=== PATIENT | female | born 1990 | race Caucasian/White ===

== ENCOUNTER 2019-11-15 21:17 | Emergency (ER) | payer BC, OTHER ==
[~2019-11-15] VITALS: Ht 160 cm; Wt 138.7 kg
--- NOTE | 2019-11-15 21:32 | ED GU-Female ---
General Stated Complaint: SPOTTING, History of Present Illness Date Seen by Provider: Nov 15, 2019 Time Seen by Provider: 21:29 Initial Comments This patient is a 29-year-old female that is a at 11 weeks . Followed by local clinic in the area for VP RESEARCH. Patient states that she had asked him farmyard while raking leaves 5 days ago with abdominal complaints of pain or injury from the fall. Patient states about 30 minutes prior to arrival started having severe abdominal cramping and did pass some tissue material and has been vaginally bleeding with cramping since. Patient requests medical evaluation. The patient understands that we do not have ultrasound available. Timing/Duration: just prior to arrival Severity/Quality: mild, cramping Radiation: none Activities at Onset: none Prior Genitourinary Problems: none Modifying Factors: Worsens With Analgesics, Worsens With Antacids, Worsens With Breathing, Worsens With Coughing, Worsens With Defecating, Worsens With Eating, Worsens With Exercise, Worsens With Lying down, Worsens With Movement, Worsens With Palpation, Worsens With Resting, Worsens With Urinating, Worsens With Vomiting, Worsens With Other Allergies and Home Medications Allergies Coded Allergies: No Known Drug Allergies (Unverified , 11/15/19) Patient Home Medication List Home Medication List Reviewed: Yes Review of Systems Review of Systems Constitutional: No no symptoms reported; see HPI; No chills, No diaphoresis, No dizziness, No fever, No malaise, No weakness, No weight gain, No weight loss, No other EENTM: No see HPI, No no symptoms reported, No ear discharge, No hearing loss, No ear pain, No blurred vision, No double vision, No eye pain, No tearing, No vision loss, No dental problems, No hoarseness, No mouth pain, No mouth swelling, No epistaxis, No nose congestion, No nose pain, No throat pain, No throat swelling, No other Respiratory: No no symptoms reported, No see HPI, No cough, No dyspnea on exertion, No hemoptysis, No orthopnea, No phlegm, No short of breath, No stridor, No wheezing, No other Cardiovascular: No no symptoms reported, No see HPI, No chest pain, No edema, No Hx of Intervention, No palpitations, No syncope, No vascular heart diseas, No other Gastrointestinal: No RUQ, No LUQ, No RLQ, No LLQ, No no symptoms reported, No see HPI, No abdominal pain, No constipation, No diarrhea, No dysphagia, No hematemesis, No heartburn, No jaundice, No loss of appetite, No melena, No nausea, No vomiting, No other Genitourinary: see HPI : Yes LMP: Aug 30, 2019 Past Vdjmdet-Caztmr-Poccjn Hx Patient Social History Recent Foreign Travel: No Contact w/Someone Who Travel: No Physical Exam Vital Signs Vital Signs - First Documented 11/15/19 21:21 Temp 37.1 Pulse 100 Resp 18 B/P (MAP) 161/94 (116) Pulse Ox 100 O2 Delivery Room Air Capillary Refill : Height, Weight, BMI Height: '" Weight: lbs. oz. kg; BMI Method: General Appearance: WD/WN, no apparent distress HEENT: PERRL/EOMI, normal ENT inspection, TMs normal, pharynx normal Neck: non-tender, full range of motion, supple, normal inspection Cardiovascular: normal peripheral pulses, regular rate, rhythm, no edema, no gallop, no JVD, no murmur Respiratory: chest non-tender, lungs clear, normal breath sounds, no respiratory distress, no accessory muscle use, respiratory distress Gastrointestinal: normal bowel sounds, non tender, soft, no organomegaly, no pulsatile mass, abnormal bowel sounds Genital/Rectal: other (deferred) Pelvic: vaginal bleeding (deferred), other Progress/Results/Core Measures Suspected Sepsis SIRS Temperature: Pulse: Respiratory Rate: Laboratory Tests 11/15/19 21:52: White Blood Count 12.0H Blood Pressure / Mean: Laboratory Tests 11/15/19 21:52: Creatinine 0.68, Platelet Count 305 Results/Orders Lab Results Laboratory Tests Test 11/15/19 21:52 Range/Units White Blood Count 12.0 H 4.3-11.0 10^3/uL Red Blood Count 5.18 4.35-5.85 10^6/uL Hemoglobin 13.3 11.5-16.0 G/DL Hematocrit 41 35-52 % Mean Corpuscular Volume 80 80-99 FL Mean Corpuscular Hemoglobin 26 25-34 PG Mean Corpuscular Hemoglobin Concent 32 32-36 G/DL Red Cell Distribution Width 14.3 10.0-14.5 % Platelet Count 305 130-400 10^3/uL Mean Platelet Volume 8.6 7.4-10.4 FL Neutrophils (%) (Auto) 71 42-75 % Lymphocytes (%) (Auto) 25 12-44 % Monocytes (%) (Auto) 4 0-12 % Eosinophils (%) (Auto) 0 0-10 % Basophils (%) (Auto) 0 0-10 % Neutrophils # (Auto) 8.5 H 1.8-7.8 X 10^3 Lymphocytes # (Auto) 3.0 1.0-4.0 X 10^3 Monocytes # (Auto) 0.4 0.0-1.0 X 10^3 Eosinophils # (Auto) 0.0 0.0-0.3 10^3/uL Basophils # (Auto) 0.0 0.0-0.1 10^3/uL Urine Color YELLOW Urine Clarity CLEAR Urine pH 6.0 5-9 Urine Specific Dexter 1.010 L 1.016-1.022 Urine Protein NEGATIVE NEGATIVE Urine Glucose (UA) NEGATIVE NEGATIVE Urine Ketones NEGATIVE NEGATIVE Urine Nitrite NEGATIVE NEGATIVE Urine Bilirubin NEGATIVE NEGATIVE Urine Urobilinogen 0.2 < = 1.0 MG/DL Urine Leukocyte Esterase NEGATIVE NEGATIVE Urine RBC (Auto) 3+ H NEGATIVE Urine RBC 5-10 H /HPF Urine WBC 0-2 /HPF Urine Squamous Epithelial Cells 0-2 /HPF Urine Crystals NONE /LPF Urine Bacteria TRACE /HPF Urine Casts NONE /LPF Urine Mucus NEGATIVE /LPF Urine Culture Indicated NO Sodium Level 140 135-145 MMOL/L Potassium Level 3.8 3.6-5.0 MMOL/L Chloride Level 102 98-107 MMOL/L Carbon Dioxide Level 22 21-32 MMOL/L Anion Gap 16 H 5-14 MMOL/L Blood Urea Nitrogen 10 7-18 MG/DL Creatinine 0.68 0.60-1.30 MG/DL Estimat Glomerular Filtration Rate > 60 BUN/Creatinine Ratio 15 Glucose Level 118 H 70-105 MG/DL Calcium Level 9.9 8.5-10.1 MG/DL Human Chorionic Gonadotropin, Quant 6802 H <5 MIU/ML My Orders Orders - NEERU LOPEZ MD Basic Metabolic Panel (11/15/19 21:27) Cbc With Automated Diff (11/15/19 21:27) Urinalysis (11/15/19 21:29) Abo Rh Type (11/15/19 21:27) Hcg,Quantitative (11/15/19 21:27) Vital Signs/I&O 11/15/19 21:21 Temp 37.1 Pulse 100 Resp 18 B/P (MAP) 161/94 (116) Pulse Ox 100 O2 Delivery Room Air Capillary Refill : Progress Note : Progress Note According to medical records from patient's previous vaginal delivery. Patient's blood type is A+. Patient will not need RhoGAM. Unable to perform an updated RBO Rh test at this facility due to not being available. According to the lab. Patient states that she does have an scheduled visit with her PCP on Thursday which is in approximately 6 days. I did advise the patient to follow up with her VP RESEARCH earlier. Patient will need to have a repeat beta hCG were also scheduling ordering the ultrasound for tomorrow. Patient will have this outpatient ultrasound. Patient states understanding that if increase in bleeding or cr amping or any discomfort she should return to the emergency Department were presented herself to [facility] which both have VP RESEARCH capabilities. Otherwise follow-up with her PCP. Patient states understanding of the risk of and this is possibly a threatened . Patient be discharged home per her request. Pelvic rest. Delayed left lateral recumbent with knees flexed. Encourage by mouth fluids and plenty rest. Follow-up with your PCP as instructed. Follow up as scheduled for an outpatient ultrasound and follow-up with her primary care physician VP RESEARCH as instructed. Departure Impression Primary Impression: Threatened affecting intrauterine Disposition: HOME, SELF-CARE Condition: Stable Departure-Patient Inst. Decision time for Depature: 22:37 Referrals: SIGIFREDO GALINDO MD (PCP/Family) Primary Care Physician Patient Instructions: Threatened Miscarriage (DC) Add. Discharge Instructions: Pelvic rest. Delayed left lateral recumbent with knees flexed. Encourage by mouth fluids and plenty rest. Follow-up with your PCP as instructed. Follow up as scheduled for an outpatient ultrasound and follow-up with her primary care physician VP RESEARCH as instructed. NEERU LOPEZ MD Nov 15, 2019 21:32
[2019-11-15 22:05] LABS: BACTERIA,URINE TRACE /HPF; BILIRUBIN,URINE NEGATIVE (NEGATIVE); CLARITY,URINE CLEAR; COLOR,URINE YELLOW; GLUCOSE, URINE (UA) NEGATIVE (NEGATIVE); KETONES,URINE NEGATIVE (NEGATIVE); LEUKOCYTE ESTERASE ,URINE NEGATIVE (NEGATIVE); NITRITE,URINE NEGATIVE (NEGATIVE); PROTEIN,URINE NEGATIVE (NEGATIVE); SQUAMOUS EPITHELIAL CELL,UR 0-2 /HPF; WBC,URINE 0-2 /HPF
[2019-11-15 22:06] LABS: BASOPHILS % (AUTO) 0 % (0-10); EOSINOPHILS % (AUTO) 0 % (0-10); HEMATOCRIT 41 % (35-52); HEMOGLOBIN 13.3 G/DL (11.5-16.0); LYMPHOCYTES % (AUTO) 25 % (12-44); MEAN CORPUSCULAR HEMOGLOBIN 26 PG (25-34); MEAN CORPUSCULAR HGB CONC 32 G/DL (32-36); MEAN CORPUSCULAR VOLUME 80 FL (80-99); MEAN PLATELET VOLUME 8.6 FL (7.4-10.4); MONOCYTES # (AUTO) 0.4 X 10^3 (0.0-1.0); MONOCYTES % (AUTO) 4 % (0-12); NEUTROPHILS # (AUTO) 8.5 X 10^3 (1.8-7.8); NEUTROPHILS % (AUTO) 71 % (42-75); PLATELET COUNT 305 10^3/uL (130-400); RED CELL DISTRIBUTION WIDTH 14.3 % (10.0-14.5)
[2019-11-15 22:21] LABS: BUN/CREATININE RATIO 15; CALCIUM 9.9 MG/DL (8.5-10.1); CARBON DIOXIDE 22 MMOL/L (21-32); CHLORIDE 102 MMOL/L (98-107); CREATININE SERUM 0.68 MG/DL (0.60-1.30); GFR ESTIMATED > 60; GLUCOSE 118 MG/DL (70-105); POTASSIUM 3.8 MMOL/L (3.6-5.0); SODIUM 140 MMOL/L (135-145)
[2019-11-15 22:40] VITALS: BP 161/92
== END 2019-11-15 22:40 | disposition home or self-care (01) ==
LOC: ER FS 21:19
DX: O20.0 Threatened abortion (principal); Z3A.11 11 weeks gestation of pregnancy
CPT/HCPCS: 36415; 80048; 81000; 84702; 85025; 86900; 86901

== ENCOUNTER 2020-05-18 17:41 | Inpatient (IN) | payer BC ==
[~2020-05-18] VITALS: Ht 160 cm; Wt 140.0 kg
[2020-05-18] MEDS ORDERED: NS IV 1000 ML 1,000 ML IV SCH ×2 (18:15→22:31)
--- NOTE | 2020-05-18 18:16 | ED Cough/URI ---
General Chief Complaint: Cough/Cold/Flu Symptoms Stated Complaint: SOB,COUGH,FEVER Nursing Triage Note: PT C/O COUGH AND FEVER SINCE LAST THURSDAY. STATES SHE IS LATE ON HER PERIOD WITH A HISTORY OF BRONCHITIS, HAS NOT BEEN TESTED FOR COVID -19 Sepsis Screen: Possible Severe Sepsis Risk Source: patient Exam Limitations: no limitations History of Present Illness Date Seen by Provider: May 18, 2020 Time Seen by Provider: 17:45 Initial Comments The patient is a pleasant obese 29-year-old female presents for evaluation of cough and fever since last Thursday, one week ago. She also reports some slight shortness of breath and some chills. She states that her and one of her children had milder symptoms in her now feeling better. She has not yet been tested for COVID-19. She states that she has lost her sense of taste and smell and had some mild diarrhea a few days ago. She is alert and oriented 4, anxious, but appears to be in no distress this time. She is noted to be tachycardic. Her oxygen saturation is between 93 and 95% on room air. Timing/Duration: week (1) Severity/Quality: moderate, dry cough Modifying Factors: Improves With Activity (makes it worse), Improves With Oxygen (helps) Associated Symptoms: cough, fever/chills, muscle aches, shortness of breath Allergies and Home Medications Allergies Coded Allergies: No Known Drug Allergies (Unverified , 11/15/19) Patient Home Medication List Home Medication List Reviewed: Yes Review of Systems Review of Systems Constitutional: chills, fever EENTM: no symptoms reported Respiratory: cough, short of breath Cardiovascular: no symptoms reported Gastrointestinal: no symptoms reported Genitourinary: no symptoms reported Musculoskeletal: no symptoms reported Skin: no symptoms reported Psychiatric/Neurological: No Symptoms Reported Hematologic/Lymphatic: No Symptoms Reported Immunological/Allergic: no symptoms reported All Other Systems Reviewed Negative Unless Noted: Yes Past Lgihfzl-Jhkshd-Zrouwi Hx Past Med/Social Hx: Reviewed Nursing Past Med/Soc Hx Patient Social History Recent Foreign Travel: No Contact w/Someone Who Travel: No Recent Infectious Disease Expo: No Seasonal Allergies Seasonal Allergies: No Past Medical History Surgeries: Yes Section Respiratory: No Cardiac: Yes (Pre-Eclampsia) Neurological: No Last Menstrual Period: Apr 11, 2020 Genitourinary: No Gastrointestinal: No Musculoskeletal: No Endocrine: No HEENT: No Cancer: No Psychosocial: No Integumentary: No Physical Exam Vital Signs - First Documented 05/18/20 17:50 Temp 36.5 Pulse 128 Resp 24 B/P (MAP) 124/102 (109) Pulse Ox 92 O2 Delivery Room Air Capillary Refill : Less Than 3 Seconds Height: '" Weight: lbs. oz. kg; 54.00 BMI Method: General Appearance: WD/WN, no apparent distress, obese Eyes: Bilateral Eye Normal Inspection, Bilateral Eye PERRL, Bilateral Eye EOMI HEENT: PERRL/EOMI, TMs normal, pharynx normal Neck: non-tender, full range of motion, supple, normal inspection Respiratory: normal breath sounds, no respiratory distress, no accessory muscle use, rhonchi, other (frequent coughing) Cardiovascular: no edema, no JVD, no murmur, tachycardia Gastrointestinal: normal bowel sounds, non tender, soft Extremities: non-tender, normal inspection, no pedal edema Neurologic/Psychiatric: human relations manager II-XII nml as tested, no motor/sensory deficits, alert, normal mood/affect, oriented x 3 Skin: normal color, warm/dry Focused Exam Lactate Level 05/18/20 18:15: Lactic Acid Level 2.03*H Lactic Acid Level Laboratory Tests Test 05/18/20 18:15 Lactic Acid Level 2.03 MMOL/L (0.50-2.00) *H Progress/Results/Core Measures Suspected Sepsis Recent Fever Within 48 Hours: Yes Infection Criteria Present: Suspected New Infection New/Unexplained Altered Menta: No Sepsis Screen: Possible Severe Sepsis Risk SIRS Temperature: Pulse: 128 Respiratory Rate: 24 Laboratory Tests 05/18/20 18:15: White Blood Count 5.1 Blood Pressure 124 /102 Mean: 109 05/18/20 18:15: Lactic Acid Level 2.03*H Laboratory Tests 05/18/20 18:15: Creatinine 0.75, Platelet Count 177, Total Bilirubin < 0.2 Results/Orders Lab Results Laboratory Tests Test 05/18/20 18:06 05/18/20 18:15 Range/Units White Blood Count 5.1 4.3-11.0 10^3/uL Red Blood Count 4.37 4.35-5.85 10^6/uL Hemoglobin 11.2 L 11.5-16.0 G/DL Hematocrit 35 35-52 % Mean Corpuscular Volume 79 L 80-99 FL Mean Corpuscular Hemoglobin 26 25-34 PG Mean Corpuscular Hemoglobin Concent 33 32-36 G/DL Red Cell Distribution Width 14.5 10.0-14.5 % Platelet Count 177 130-400 10^3/uL Mean Platelet Volume 9.1 7.4-10.4 FL Immature Granulocyte % (Auto) 0 % Neutrophils (%) (Auto) 65 42-75 % Lymphocytes (%) (Auto) 29 12-44 % Monocytes (%) (Auto) 5 0-12 % Eosinophils (%) (Auto) 0 0-10 % Basophils (%) (Auto) 0 0-10 % Neutrophils # (Auto) 3.3 1.8-7.8 X 10^3 Lymphocytes # (Auto) 1.5 1.0-4.0 X 10^3 Monocytes # (Auto) 0.3 0.0-1.0 X 10^3 Eosinophils # (Auto) 0.0 0.0-0.3 10^3/uL Basophils # (Auto) 0.0 0.0-0.1 10^3/uL Immature Granulocyte # (Auto) 0.0 0.0-0.1 10^3/uL Sodium Level 138 135-145 MMOL/L Potassium Level 3.7 3.6-5.0 MMOL/L Chloride Level 100 98-107 MMOL/L Carbon Dioxide Level 23 21-32 MMOL/L Anion Gap 15 H 5-14 MMOL/L Blood Urea Nitrogen 7 7-18 MG/DL Creatinine 0.75 0.60-1.30 MG/DL Estimat Glomerular Filtration Rate > 60 BUN/Creatinine Ratio 9 Glucose Level 97 70-105 MG/DL Lactic Acid Level 2.03 *H 0.50-2.00 MMOL/L Calcium Level 8.8 8.5-10.1 MG/DL Corrected Calcium 8.8 8.5-10.1 MG/DL Total Bilirubin < 0.2 0.1-1.0 MG/DL Aspartate Amino Transf (AST/SGOT) 32 5-34 U/L Alanine Aminotransferase (ALT/SGPT) 31 0-55 U/L Alkaline Phosphatase 72 40-136 U/L Total Protein 7.2 6.4-8.2 GM/DL Albumin 4.0 3.2-4.5 GM/DL Micro Results Microbiology 05/18/20 Influenza Types A,B Antigen (AFSHAN) - Final, Complete My Orders Orders - LINDA BOONE DO Influenza A And B Antigens (05/18/20 18:00) Coronavirus Sars-Cov-2 So 2018 (05/18/20 18:00) Urine Bedside (05/18/20 18:00) Chest 1 View Ap/Pa Only (05/18/20 18:00) Cbc With Automated Diff (05/18/20 18:11) Comprehensive Metabolic Panel (05/18/20 18:11) Ua Culture If Indicated (05/18/20 18:11) Ns Iv 1000 Ml (Sodium Chloride 0.9%) (05/18/20 18:15) Lactic Acid Analyzer (05/18/20 18:11) Blood Culture (05/18/20 18:11) Section Maintainer (05/18/20 18:11) Procalcitonin (Pct) (05/18/20 18:15) Blood Culture (05/18/20 18:26) Hcg,Qualitative Serum (05/18/20 19:14) Dexamethasone Injection (Decadron Injec (05/18/20 19:45) Arterial Blood Gas (05/18/20 19:37) Vital Signs/I&O 05/18/20 05/18/20 05/18/20 05/18/20 17:50 18:00 18:00 18:56 Temp 36.5 36.5 37.4 Pulse 128 128 114 Resp 24 24 21 B/P (MAP) 124/102 (109) 124/102 139/87 (104) Pulse Ox 92 92 91 O2 Delivery Room Air Room Air Room Air Room Air Capillary Refill : Less Than 3 Seconds Blood Pressure Mean: 109 Progress Note : Progress Note @1930 - patient updated on lab and imaging results. Given her oxygen demand and her loss of taste and smell I'm strongly suspicious that she has a coronavirus. She'll need to be admitted for oxygen and close monitoring. She is agreeable to admission at [facility]. Dr. Dr. Veronica accepts the admission to the cardiac stepdown at this time. Departure Communication (Admissions) Time/Spoke to Admitting Phy: 19:41 Dr. Howell accepts the admission to cardiac stepdown at [facility] Impression Primary Impression: Upper respiratory infection Additional Impressions: Suspected COVID-19 virus infection Hypoxia Disposition: 09 ADMITTED INPATIENT Condition: Stable Admissions Decision to Admit Reason: Admit from ER (General) Decision to Admit/Date: May 18, 2020 Time/Decision to Admit Time: 19:30 Departure-Patient Inst. Referrals: SIGIFREDO GALINDO MD (PCP/Family) Primary Care Physician LINDA BOONE DO May 18, 2020 18:16
[2020-05-18 18:41] LABS: BASOPHILS % (AUTO) 0 % (0-10); EOSINOPHILS % (AUTO) 0 % (0-10); HEMATOCRIT 35 % (35-52); HEMOGLOBIN 11.2 G/DL (11.5-16.0); LYMPHOCYTES % (AUTO) 29 % (12-44); MEAN CORPUSCULAR HEMOGLOBIN 26 PG (25-34); MEAN CORPUSCULAR HGB CONC 33 G/DL (32-36); MEAN CORPUSCULAR VOLUME 79 FL (80-99); MEAN PLATELET VOLUME 9.1 FL (7.4-10.4); MONOCYTES % (AUTO) 5 % (0-12); NEUTROPHILS % (AUTO) 65 % (42-75); PLATELET COUNT 177 10^3/uL (130-400); WHITE BLOOD COUNT 5.1 10^3/uL (4.3-11.0)
[2020-05-18 18:42] LABS: LYMPHOCYTES # (AUTO) 1.5 X 10^3 (1.0-4.0); MONOCYTES # (AUTO) 0.3 X 10^3 (0.0-1.0); NEUTROPHILS # (AUTO) 3.3 X 10^3 (1.8-7.8)
[2020-05-18 18:56] VITALS: BP 139/87
[2020-05-18 18:58] LABS: ALANINE AMINOTRANSFERASE 31 U/L (0-55); ALKALINE PHOSPHATASE 72 U/L (40-136); BILIRUBIN,TOTAL < 0.2 MG/DL (0.1-1.0); BUN/CREATININE RATIO 9; CALCIUM 8.8 MG/DL (8.5-10.1); CARBON DIOXIDE 23 MMOL/L (21-32); CHLORIDE 100 MMOL/L (98-107); CREATININE SERUM 0.75 MG/DL (0.60-1.30); GFR ESTIMATED > 60; GLUCOSE 97 MG/DL (70-105); POTASSIUM 3.7 MMOL/L (3.6-5.0); SODIUM 138 MMOL/L (135-145); TOTAL PROTEIN 7.2 GM/DL (6.4-8.2)
--- NOTE | 2020-05-18 20:45 | Diagnostic Imaging Report ---
INDICATION: Cough and fever x 1 week. TECHNIQUE: Single view chest, 8:10 p.m. CORRELATION STUDY: None. FINDINGS: There is extensive attenuation on this examination. There is also limited depth of inspiration. This likely results in some crowding at the lung bases and may be atelectasis from hypoventilation with the possibility of infiltrate, particularly in the right perihilar and infrahilar region, not excluded. Heart size is enlarged. Vasculature overall within normal limits. IMPRESSION: Limited, suboptimal examination. Given hypoventilation, there may be atelectasis versus infiltrate at the lung bases, particularly on the right. Otherwise, generally negative appearance about the chest. Dictated by: Dictated on workstation # [id number]
[2020-05-18] MEDS ORDERED: ONDANSETRON 4 MG/2 ML (SDV) Z0FRAN IVP ONE (21:15)
[2020-05-18] MEDS ORDERED: ACETAMINOPHEN 500 MG TAB (TYLENOL) PO ONE (21:15)
[2020-05-18 22:15] VITALS: BP 134/83
[2020-05-18 22:27] VITALS: BP 134/83
[2020-05-18] MEDS: ONDANSETRON 4 MG/2 ML (SDV) Z0FRAN IVP PRN (22:40)
[2020-05-18] MEDS ORDERED: ALPRAZolam 0.25 MG (XANAX) TAB PO PRN (22:45)
[2020-05-18] MEDS ORDERED: LOPERAMIDE 2 MG (IMODIUM) TABLET PO PRN (22:45)
[2020-05-18] MEDS ORDERED: diphenhydrAMINE 25 MG TAB (BENADRYL) PO PRN (22:45)
[2020-05-18] MEDS ORDERED: CALCIUM CARBONATE 500 MG (TUMS) TAB.CHEW PO PRN (22:45)
[2020-05-18] MEDS ORDERED: DOCUSATE SODIUM 100 MG (COLACE) CAP PO PRN (22:45)
[2020-05-18] MEDS ORDERED: HYDROcodone/APAP 5 MG/325 MG (LORTAB) TAB PO PRN (22:45)
[2020-05-18] MEDS ORDERED: fentaNYL INJECTION 100 MCG/2 ML AMP IVP PRN (22:45)
[2020-05-18] MEDS: NS IV 1000 ML 1,000 ML IV SCH (22:46)
[2020-05-18 23:10] LABS: ABG BASE EXCESS 0.1 MMOL/L (-2.5-2.5); ABG OXYGEN SATURATION 99 % (94-100); ABG PCO2 34 MMHG (35-45); ABG PH 7.45 (7.37-7.43); ABG PO2 112 MMHG (79-93); ABG TCO2 24.8 MMOL/L (21.0-31.0)
[2020-05-18 23:13] LABS: ALLENS TEST YES-POS; INSPIRED O2 3; PATIENT TEMP 36.6; VENTILATOR NO
[2020-05-19] VITALS (7 sets, daily range): BP systolic 111–134; BP diastolic 73–83
[2020-05-19] MEDS ORDERED: RT-ALBUTEROL INHALER HFA (VENTOLIN HFA) 18 GM IH PRN (00:45)
[2020-05-19] MEDS: guaiFENesin/CODEINE (ROBITUSSIN AC) 10ML UDC PO PRN ×4 (01:42→20:28)
[2020-05-19] MEDS: NS IV 1000 ML 1,000 ML IV SCH (02:06)
--- NOTE | 2020-05-19 06:42 | History & Physical-Hospitalist ---
History of Present Illness HPI/Chief Complaint CC: Fever and cough HPI: This is a 29yoWF clinic patient of [facility] who presents to the ER with fever and cough for the past few days and her family members have the same symptoms. Patient has a nagging cough and is currently requiring oxygen. Patient is not a smoker but has increased BMI of 54. COVID swab pending but patient is presumed to have COVID. Decadron given in meantime and will plan for plasma if swab is negative and she agrees with the plan. Source: patient Exam Limitations: no limitations Date Seen 05/19/20 Time Seen by a Provider: 10:00 Attending Physician Brittni Veronica Holly R MD Referring Physician Date of Admission May 18, 2020 at 22:03 Home Medications & Allergies Home Medications Reviewed patient Home Medication Reconciliation performed by pharmacy medication reconciliations electronic bench technician and/or nursing. Patients Allergies have been reviewed. Allergies Allergies Coded Allergies No Known Drug Allergies (Unverified11/15/19) Past Skzudsb-Jgvylz-Jhsxcu Hx Past Med/Social Hx: Reviewed Nursing Past Med/Soc Hx, Reviewed and Corrections made Patient Social History Marrital Status: Employed/Student: employed Alcohol Use: Denies Use Recreational Drug Use: No Smoking Status: Former Smoker Type Used: Cigarettes 2nd Hand Smoke Exposure: No Recent Foreign Travel: No Contact w/other who traveled: No Recent Hopitalizations: No Recent Infectious Disease Expo: No Seasonal Allergies Seasonal Allergies: Yes Past Medical History Surgeries: Section Currently Using CPAP: No Currently Using BIPAP: No Sexually Transmitted Disease: No HIV/AIDS: No History of Blood Disorders: No Review of Systems Constitutional: see HPI Respiratory: cough, dyspnea on exertion, short of breath Physical Exam Physical Exam Vital Signs Vital Signs - First Documented 05/18/20 05/18/20 05/18/20 17:50 21:06 23:30 Temp 36.5 Pulse 128 Resp 24 B/P (MAP) 124/102 (109) Pulse Ox 92 O2 Delivery Room Air O2 Flow Rate 4.00 FiO2 97 Capillary Refill : Less Than 3 Seconds Height, Weight, BMI Height: '" Weight: lbs. oz. kg; 54.49 BMI Method: General Appearance: No Apparent Distress, Chronically ill, Obese Eyes: Right Eye Normal Inspection, Right Eye PERRL HEENT: PERRL/EOMI, Normal ENT Inspection, Pharynx Normal, Moist Mucous Membranes Neck: Full Range of Motion, Normal Inspection, Non Tender Respiratory: Chest Non Tender, No Accessory Muscle Use, No Respiratory Distress, Decreased Breath Sounds Cardiovascular: Regular Rate, Rhythm, No Edema, No Gallop, No JVD, No Murmur, Normal Peripheral Pulses Gastrointestinal: Normal Bowel Sounds, No Organomegaly, No Pulsatile Mass, Non Tender, Soft Back: Normal Inspection, No CVA Tenderness, No Vertebral Tenderness Extremity: Normal Capillary Refill, Normal Inspection, Normal Range of Motion, Non Tender, No Calf Tenderness, No Pedal Edema Neurologic/Psychiatric: Alert, Oriented x3, No Motor/Sensory Deficits, Normal Mood/Affect Skin: Normal Color, Warm/Dry Lymphatic: No Adenopathy Results Results/Procedures Labs Laboratory Tests 05/18/20 18:15 05/19/20 06:55 Patient resulted labs reviewed. Assessment/Plan Admission Diagnosis Assessment: Presumptive COVID Hypoxia Fever Cough Plan: Decadron Swab pending O2 Cough suppressants Lovenox Admission Status: Inpatient Order (span 2 midnights) Reason for Inpatient Admission: covid Diagnosis/Problems Diagnosis/Problems (1) Suspected COVID-19 virus infection Status: Acute (2) Hypoxia Status: Acute (3) Upper respiratory infection Status: Acute Clinical Quality Measures DVT/VTE Risk/Contraindication: Risk Factor Score Per Nursin RFS Level Per Nursing on Admit: 1=Low/No VTE PPX BRITTNI VERONICA DO May 19, 2020 06:42
[2020-05-19] MEDS ORDERED: FLU QUADRIvalent (3YOA+) 60 mcg/0.5 ml 2020-21 (AFLURIA) IM ONE (07:15)
[2020-05-19 07:16] LABS: BASOPHILS % (AUTO) 0 % (0-10); EOSINOPHILS % (AUTO) 0 % (0-10); HEMATOCRIT 36 % (35-52); LYMPHOCYTES # (AUTO) 0.7 10^3/uL (1.0-4.0); LYMPHOCYTES % (AUTO) 28 % (12-44); MEAN CORPUSCULAR HEMOGLOBIN 25 pg (25-34); MEAN CORPUSCULAR HGB CONC 31 g/dL (32-36); MEAN CORPUSCULAR VOLUME 81 fL (80-99); MEAN PLATELET VOLUME 9.3 fL (9.0-12.2); MONOCYTES # (AUTO) 0.1 10^3/uL (0.0-1.0); MONOCYTES % (AUTO) 3 % (0-12); NEUTROPHILS # (AUTO) 1.8 10^3/uL (1.8-7.8); NEUTROPHILS % (AUTO) 68 % (42-75); PLATELET COUNT 175 10^3/uL (130-400); WHITE BLOOD COUNT 2.7 10^3/uL (4.3-11.0)
[2020-05-19 07:21] LABS: ALANINE AMINOTRANSFERASE 32 U/L (0-55); ALKALINE PHOSPHATASE 73 U/L (40-136); BILIRUBIN,TOTAL 0.2 MG/DL (0.1-1.0); BUN/CREATININE RATIO 9; CALCIUM 8.6 MG/DL (8.5-10.1); CARBON DIOXIDE 21 MMOL/L (21-32); CHLORIDE 105 MMOL/L (98-107); CREATININE SERUM 0.76 MG/DL (0.60-1.30); GFR ESTIMATED > 60; GLUCOSE 140 MG/DL (70-105); POTASSIUM 4.1 MMOL/L (3.6-5.0); SODIUM 138 MMOL/L (135-145); TOTAL PROTEIN 7.2 GM/DL (6.4-8.2)
[2020-05-19 07:32] LABS: SMEAR SCAN COMMENT YES
[2020-05-19] MEDS: dexAMETHasone 6 MG TAB (DECADRON) PO SCH (07:56)
[2020-05-19] MEDS: SENNA W/DOCUSATE (SENOKOT S) TABLET PO SCH ×2 (07:57→20:27)
[2020-05-19] MEDS: ENOXAPARIN 60 MG/0.6 ML (LOVENOX) SYR SC SCH ×2 (07:57→20:27)
[2020-05-19] MEDS: RT-ALBUTEROL INHALER HFA (VENTOLIN HFA) 18 GM IH SCH ×3 (09:39→22:16)
[2020-05-19] MEDS: ACETAMINOPHEN 500 MG TAB (TYLENOL) PO PRN ×2 (11:25→20:27)
[2020-05-19] MEDS: ONDANSETRON 4 MG/2 ML (SDV) Z0FRAN IVP PRN (11:30)
--- NOTE | 2020-05-19 14:56 | NUR ---
REPORT CALLED TO ALEN MONTES.
--- NOTE | 2020-05-19 15:25 | NUR ---
PT TRANSPORTED TO 4TH MEDICAL/SURGICAL FLOOR BY THIS RN AND DEVAUGHN DENISE. IV SALINE LOCKED AND INTACT UPON ARRIVAL. PT ORIENTED TO ROOM AND GIVEN CALL LIGHT.
--- NOTE | 2020-05-19 15:26 | NUR ---
RECEIVED FROM ICU PUI PATIENT, COVID ISOLATION, ORIENTED TO ROOM, CALL LIGHT WITHIN REACH, O2 ON PER NC AT 2 LITERS, DENIES PAIN OR SOB AT THIS TIME, IV SITE WITHOUT REDNESS OR SWELLING,
[2020-05-19] MEDS: MELATONIN 3 MG TABLET PO PRN (20:28)
[2020-05-20] VITALS (9 sets, daily range): BP systolic 106–146; BP diastolic 59–91
[2020-05-20] MEDS: RT-ALBUTEROL INHALER HFA (VENTOLIN HFA) 18 GM IH SCH ×4 (02:35→20:23)
[2020-05-20] MEDS: dexAMETHasone 6 MG TAB (DECADRON) PO SCH (06:07)
[2020-05-20] MEDS: guaiFENesin/CODEINE (ROBITUSSIN AC) 10ML UDC PO PRN ×3 (06:07→21:11)
[2020-05-20 06:11] LABS: BASOPHILS % (AUTO) 0 % (0-10); EOSINOPHILS % (AUTO) 0 % (0-10); HEMATOCRIT 35 % (35-52); HEMOGLOBIN 10.7 g/dL (11.5-16.0); LYMPHOCYTES # (AUTO) 1.5 10^3/uL (1.0-4.0); LYMPHOCYTES % (AUTO) 18 % (12-44); MEAN CORPUSCULAR HEMOGLOBIN 25 pg (25-34); MEAN CORPUSCULAR HGB CONC 31 g/dL (32-36); MEAN CORPUSCULAR VOLUME 82 fL (80-99); MEAN PLATELET VOLUME 9.8 fL (9.0-12.2); MONOCYTES # (AUTO) 0.3 10^3/uL (0.0-1.0); MONOCYTES % (AUTO) 4 % (0-12); NEUTROPHILS # (AUTO) 6.4 10^3/uL (1.8-7.8); NEUTROPHILS % (AUTO) 77 % (42-75); PLATELET COUNT 209 10^3/uL (130-400); WHITE BLOOD COUNT 8.3 10^3/uL (4.3-11.0)
[2020-05-20 06:14] LABS: CHLORIDE 106 MMOL/L (98-107); POTASSIUM 4.1 MMOL/L (3.6-5.0); SODIUM 141 MMOL/L (135-145)
--- NOTE | 2020-05-20 06:14 | Progress Note - Hospitalist ---
Subjective HPI/CC On Admission Date Seen by Provider: May 20, 2020 Time Seen by Provider: 11:30 CC: Fever and cough HPI: This is a 29yoWF clinic patient of [facility] who presents to the ER with fever and cough for the past few days and her family members have the same symptoms. Patient has a nagging cough and is currently requiring oxygen. Patient is not a smoker but has increased BMI of 54. COVID swab pending but patient is presumed to have COVID. Decadron given in meantime and will plan for plasma if swab is negative and she agrees with the plan. Subjective/Events-last exam COVID + Plasma infusing now Off O2 COugh improved Decadron maintained Review of Systems General: Fatigue, Malaise Pulmonary: Cough Focused Exam Lactate Level 05/18/20 18:15: Lactic Acid Level 2.03*H 05/18/20 20:15: Lactic Acid Level 0.66 Objective Exam Vital Signs Vital Signs Date Time Temp Pulse Resp B/P (MAP) Pulse Ox O2 Delivery O2 Flow Rate FiO2 05/20/20 15:05 95 Room Air 05/20/20 14:05 36.8 69 120/65 05/20/20 12:10 20 05/20/20 09:00 2.00 05/18/20 23:30 97 Capillary Refill : Less Than 3 Seconds General Appearance: No Apparent Distress, WD/WN, Chronically ill, Obese Respiratory: Chest Non Tender, Lungs Clear, Normal Breath Sounds, No Accessory Muscle Use, No Respiratory Distress Cardiovascular: Regular Rate, Rhythm, No Edema, No Gallop, No JVD, No Murmur, Normal Peripheral Pulses Neurologic/Psychiatric: Alert, Oriented x3, No Motor/Sensory Deficits, Normal Mood/Affect Results/Procedures Lab Laboratory Tests 05/20/20 05:54 Patient resulted labs reviewed. Assessment/Plan Assessment and Plan Assess & Plan/Chief Complaint Assessment: COVID 19 pneumonitis Hypoxia Fever Obesity Plan: Plasma Off O2 Diagnosis/Problems Diagnosis/Problems (1) COVID-19 (2) Suspected COVID-19 virus infection Status: Acute (3) Hypoxia Status: Acute (4) Upper respiratory infection Status: Acute Clinical Quality Measures DVT/VTE Risk/Contraindication: Risk Factor Score Per Nursin RFS Level Per Nursing on Admit: 1=Low/No VTE PPX CHARLA BUI DO May 20, 2020 06:14
[2020-05-20 06:16] LABS: GLUCOSE 125 MG/DL (70-105); TOTAL PROTEIN 7.2 GM/DL (6.4-8.2)
[2020-05-20 06:17] LABS: CARBON DIOXIDE 24 MMOL/L (21-32)
[2020-05-20 06:18] LABS: BILIRUBIN,TOTAL 0.1 MG/DL (0.1-1.0)
[2020-05-20 06:20] LABS: ALKALINE PHOSPHATASE 59 U/L (40-136); CREATININE SERUM 0.75 MG/DL (0.60-1.30); GFR ESTIMATED > 60
[2020-05-20 06:21] LABS: BUN/CREATININE RATIO 15
[2020-05-20 06:23] LABS: ALANINE AMINOTRANSFERASE 27 U/L (0-55)
[2020-05-20] MEDS: SENNA W/DOCUSATE (SENOKOT S) TABLET PO SCH ×2 (10:04→21:11)
[2020-05-20] MEDS: ENOXAPARIN 60 MG/0.6 ML (LOVENOX) SYR SC SCH ×2 (10:05→21:11)
[2020-05-20] MEDS ORDERED: NS IV 500 ML 500 ML ONE (11:18)
[2020-05-20] MEDS: ACETAMINOPHEN 500 MG TAB (TYLENOL) PO PRN (21:11)
[2020-05-20] MEDS: MELATONIN 3 MG TABLET PO PRN (21:13)
[2020-05-21 00:04] VITALS: BP 121/65
[2020-05-21] MEDS: RT-ALBUTEROL INHALER HFA (VENTOLIN HFA) 18 GM IH SCH (02:00)
[2020-05-21 04:25] VITALS: BP 124/94
[2020-05-21] MEDS: dexAMETHasone 6 MG TAB (DECADRON) PO SCH (06:32)
[2020-05-21 06:44] LABS: BASOPHILS % (AUTO) 0 % (0-10); EOSINOPHILS % (AUTO) 0 % (0-10); HEMATOCRIT 34 % (35-52); HEMOGLOBIN 10.3 g/dL (11.5-16.0); LYMPHOCYTES # (AUTO) 2.6 10^3/uL (1.0-4.0); LYMPHOCYTES % (AUTO) 29 % (12-44); MEAN CORPUSCULAR HEMOGLOBIN 25 pg (25-34); MEAN CORPUSCULAR HGB CONC 31 g/dL (32-36); MEAN CORPUSCULAR VOLUME 82 fL (80-99); MEAN PLATELET VOLUME 9.6 fL (9.0-12.2); MONOCYTES # (AUTO) 0.4 10^3/uL (0.0-1.0); MONOCYTES % (AUTO) 4 % (0-12); NEUTROPHILS # (AUTO) 5.8 10^3/uL (1.8-7.8); NEUTROPHILS % (AUTO) 66 % (42-75); PLATELET COUNT 225 10^3/uL (130-400); WHITE BLOOD COUNT 8.8 10^3/uL (4.3-11.0)
[2020-05-21 07:04] LABS: ALBUMIN 3.9 GM/DL (3.2-4.5); CHLORIDE 106 MMOL/L (98-107); POTASSIUM 3.5 MMOL/L (3.6-5.0); SODIUM 141 MMOL/L (135-145)
[2020-05-21 07:05] LABS: CALCIUM 8.9 MG/DL (8.5-10.1)
[2020-05-21 07:06] LABS: GLUCOSE 96 MG/DL (70-105)
[2020-05-21 07:07] LABS: TOTAL PROTEIN 6.9 GM/DL (6.4-8.2)
[2020-05-21 07:08] LABS: BILIRUBIN,TOTAL 0.2 MG/DL (0.1-1.0); CARBON DIOXIDE 24 MMOL/L (21-32)
[2020-05-21 07:10] LABS: ALKALINE PHOSPHATASE 66 U/L (40-136); CREATININE SERUM 0.76 MG/DL (0.60-1.30); GFR ESTIMATED > 60
[2020-05-21 07:11] LABS: BUN/CREATININE RATIO 18
[2020-05-21 07:13] LABS: ALANINE AMINOTRANSFERASE 24 U/L (0-55)
[2020-05-21 08:00] VITALS: BP 130/77
[2020-05-21] MEDS: SENNA W/DOCUSATE (SENOKOT S) TABLET PO SCH (09:00)
[2020-05-21] MEDS: ENOXAPARIN 60 MG/0.6 ML (LOVENOX) SYR SC SCH (10:00)
[2020-05-21] MEDS ORDERED: DEXA6TAB6 PO (10:37)
--- NOTE | 2020-05-21 10:38 | Discharge Summary ---
Discharge Summary Hospital Course Was the Problem List Reviewed?: Yes Problems/Dx: (1) COVID-19 (2) Suspected COVID-19 virus infection Status: Acute (3) Hypoxia Status: Acute (4) Upper respiratory infection Status: Acute Hospital Course Date of Admission: May 18, 2020 at 22:03 Admission Diagnosis : Family Physician/Provider: Jyoti Riley MD Date of Discharge: 05/21/20 Discharge Diagnosis: Assessment: COVID 19 pneumonitis Hypoxia Fever Obesity Plan: Plasma Off O2 Hospital Course: Hospital Course: Pt had an uneventful hospital course. She was admitted for suspicion of Covid and fever and hypoxia with cough. She was fully supported with Decadron and oxygen. Covid swab was positive and pt was deemed stable at that time. She did receive convalescent plasma. No indication for Remdesivir and overall she was doing well enough, labs remained stable in order to discharge home in improved condition. No longer requiring O2. Labs and Pending Lab Test: Laboratory Tests 05/21/20 06:15: White Blood Count 8.8, Red Blood Count 4.13, Hemoglobin 10.3L, Hematocrit 34L, Mean Corpuscular Volume 82, Mean Corpuscular Hemoglobin 25, Mean Corpuscular Hemoglobin Concent 31L, Red Cell Distribution Width 14.6H, Platelet Count 225, Mean Platelet Volume 9.6, Immature Granulocyte % (Auto) 1, Neutrophils (%) (Auto) 66, Lymphocytes (%) (Auto) 29, Monocytes (%) (Auto) 4, Eosinophils (%) (Auto) 0, Basophils (%) (Auto) 0, Neutrophils # (Auto) 5.8, Lymphocytes # (Auto) 2.6, Monocytes # (Auto) 0.4, Eosinophils # (Auto) 0.0, Basophils # (Auto) 0.0, Immature Granulocyte # (Auto) 0.1, Sodium Level 141, Potassium Level 3.5L, Chloride Level 106, Carbon Dioxide Level 24, Anion Gap 11, Blood Urea Nitrogen 14, Creatinine 0.76, Estimat Glomerular Filtration Rate > 60, BUN/Creatinine Ratio 18, Glucose Level 96, Calcium Level 8.9, Corrected Calcium 9.0, Total Bilirubin 0.2, Aspartate Amino Transf (AST/SGOT) 16, Alanine Aminotransferase (ALT/SGPT) 24, Alkaline Phosphatase 66, Total Protein 6.9, Albumin 3.9 Microbiology 05/18/20 Blood Culture - Preliminary, Resulted No growth 05/18/20 Influenza Types A,B Antigen (AFSHAN) - Final, Complete Home Meds Active Decadron (Dexamethasone) 6 Mg Tablet 6 Mg PO DAILY Assessment/Pt Instructions chc 1 week Discharge Planning: <30 minutes discharge planning Discharge Instructions Discharge Diet: No Restrictions Activity as Tolerated: Yes Discharge Physical Examination Vital Signs Vital Signs Date Time Temp Pulse Resp B/P (MAP) Pulse Ox O2 Delivery O2 Flow Rate FiO2 05/21/20 08:00 35.6 63 18 130/77 (94) 97 Room Air 05/20/20 09:00 2.00 05/18/20 23:30 97 General Appearance: No Apparent Distress, WD/WN Respiratory: Normal Breath Sounds Cardiovascular: Regular Rate, Rhythm Neurologic/Psychiatric: Alert, Oriented x3 Allergies: Coded Allergies: No Known Drug Allergies (Unverified , 11/15/19) Discharge Summary Date of Admission May 18, 2020 at 22:03 Date of Discharge Discharge Date: May 21, 2020 Admission Diagnosis Assessment: Presumptive COVID Hypoxia Fever Cough Plan: Decadron Swab pending O2 Cough suppressants Lovenox Discharge Diagnosis Assessment: COVID 19 pneumonitis Hypoxia Fever Obesity Plan: Plasma Off O2 (1) COVID-19 (2) Suspected COVID-19 virus infection Status: Acute (3) Hypoxia Status: Acute (4) Upper respiratory infection Status: Acute Clinical Quality Measures DVT/VTE Risk/Contraindication: Risk Factor Score Per Nursin RFS Level Per Nursing on Admit: 1=Low/No VTE PPX CHARLA BUI DO May 21, 2020 10:37
--- NOTE | 2020-05-21 11:15 | NUR ---
CM FINALIZED DISCHARGE PLAN: Patient is discharging to home self care. She reports that she is on room air et denies any medical equipment needs. She is COVID + et voices that she has been informed of isolation process for when she dismisses from the hospital. Encouraged her to be expecting phone calls from the [facility] with questions and further instructions. She reports understanding et denies any needs.
[2020-05-21 12:00] VITALS: BP 147/94
[2020-05-21 14:35] VITALS: BP 147/94
== END 2020-05-21 14:35 | disposition home or self-care (01) | DRG 177 ==
LOC: EDUNIT# 17:41 → ER FS 17:43 → CSD 22:03 → 4TH 05-19 15:22
PROVIDERS: ADMIT Internal Medicine; ATTEND Internal Medicine
PROC: XW13325 Transfusion of Convalescent Plasma (Nonautologous) into Peripheral Vein, Percutaneous Approach, New Technology Group 5 (ICD-10-PCS; principal; 2020-05-20)
DX: U07.1 COVID-19 (principal); J12.89 Other viral pneumonia; Z68.43 Body mass index [BMI] 50.0-59.9, adult; R09.02 Hypoxemia; E66.9 Obesity, unspecified; Z87.891 Personal history of nicotine dependence
CPT/HCPCS: 36415; 71045; 80053; 82805; 83605; 84145; 84703; 85025; 86900; 86901; 87040; 87635; 87804; 94640; 94664; 96361; 96374; 96375

== ENCOUNTER 2020-09-21 09:00 | Outpatient (RCR) | payer BC ==
[~2020-09-21] VITALS: Ht 160 cm; Wt 139.5 kg
[~2020-09-21 09:00] MED LIST: DEXA6TAB6 PO
== END 2020-09-21 10:12 | disposition home or self-care (01) ==
LOC: PREOP 09:00
PROVIDERS: ATTEND Otolaryngology Otolaryngology/Facial Plastic Surgery
DX: Z01.818 Encounter for other preprocedural examination (principal); J35.1 Hypertrophy of tonsils

== ENCOUNTER → 2020-09-24 | Outpatient (CLI) | payer BC | LOC: LAB FS 10:25 | PROVIDERS: ATTEND Otolaryngology Otolaryngology/Facial Plastic Surgery | DX: Z01.812 Encounter for preprocedural laboratory examination (principal); J35.1 Hypertrophy of tonsils; Z20.822 Contact with and (suspected) exposure to COVID-19 | CPT/HCPCS: 87635 ==

== ENCOUNTER 2020-09-27 06:16 | Day surgery (SDC) | payer BC ==
[~2020-09-27] VITALS: Ht 160 cm; Wt 139.5 kg
[2020-09-27] VITALS (14 sets, daily range): BP systolic 113–165; BP diastolic 70–92
[2020-09-27] MEDS ORDERED: ONDANSETRON 4 MG/2 ML (SDV) Z0FRAN ONE (06:52)
[2020-09-27] MEDS ORDERED: SEVOFLURANE (ULTANE) 15 ML INHAL SOLN ONE (06:52)
[2020-09-27] MEDS ORDERED: ROCURONIUM 10 MG/ML 5 ML SYRINGE IV ONE (06:52)
[2020-09-27] MEDS ORDERED: proPOfol 200 MG/20 ML (DIPRIVAN) VIAL IV ONE (06:52)
[2020-09-27] MEDS ORDERED: fentaNYL INJECTION 100 MCG/2 ML AMP ONE (06:52)
[2020-09-27] MEDS ORDERED: MIDAZOLAM 2 MG/2 ML (VERSED) VIAL ONE (06:53)
--- NOTE | 2020-09-27 06:58 | Progress Note-Pre Operative ---
Pre-Operative Progress Note H&P Reviewed The H&P was reviewed, patient examined and no changes noted. Date Seen by Provider: Sep 27, 2020 Time Seen by Provider: 06:30 Date H&P Reviewed: Sep 27, 2020 Time H&P Reviewed: 06:30 Pre-Operative Diagnosis: Chronic Tonsil stones, Chronic Tonsillitis GLADYS YOO MD Sep 27, 2020 06:58
--- NOTE | 2020-09-27 07:01 | Progress Note-Post Operative ---
Post-Operative Progess Note Surgeon (s)/Manager Book (s) Surgeon GLADYS YOO MD Manager Book n/a Pre-Operative Diagnosis Chronic Tonsil stones, Chronic Tonsillitis Post-Operative Diagnosis same Post-Op Procedure Note Date of Procedure: Sep 27, 2020 Name of Procedure Performed: Tonsillectomy Description & Findings Description and Findings: n/a Anesthesia Type get Estimated Blood Loss minimal Packing none. Specimen(s) collected/removed tonsils GLADYS YOO MD Sep 27, 2020 07:01
[2020-09-27] MEDS: LACTATED RINGERS 1,000 ML IV PRN ×2 (07:13→09:50)
[2020-09-27] MEDS ORDERED: HYDROcodone/APAP 7.5MG-325 MG/15 ML (LORTAB) UDC PO PRN (07:15)
[2020-09-27] MEDS ORDERED: NS IV 1000 ML 1,000 ML IV SCH (07:15)
[2020-09-27] MEDS ORDERED: APAP 325 MG/10.15 ML LIQ (TYLENOL) UDC PO PRN (07:15)
[2020-09-27 07:26] LABS: BASOPHILS % (AUTO) 0 % (0-10); MEAN CORPUSCULAR VOLUME 80 fL (80-99)
[2020-09-27 07:28] LABS: EOSINOPHILS # (AUTO) 0.3 10^3/uL (0.0-0.3); EOSINOPHILS % (AUTO) 3 % (0-10); HEMATOCRIT 39 % (35-52); HEMOGLOBIN 12.3 g/dL (11.5-16.0); LYMPHOCYTES # (AUTO) 2.6 10^3/uL (1.0-4.0); LYMPHOCYTES % (AUTO) 29 % (12-44); MEAN CORPUSCULAR HEMOGLOBIN 25 pg (25-34); MEAN CORPUSCULAR HGB CONC 32 g/dL (32-36); MEAN PLATELET VOLUME 9.8 fL (9.0-12.2); MONOCYTES # (AUTO) 0.4 10^3/uL (0.0-1.0); MONOCYTES % (AUTO) 5 % (0-12); NEUTROPHILS # (AUTO) 5.6 10^3/uL (1.8-7.8); NEUTROPHILS % (AUTO) 62 % (42-75); PLATELET COUNT 236 10^3/uL (130-400)
[2020-09-27] MEDS ORDERED: GLYCOPYRROLATE 0.2 MG/ML (ROBINUL) 2 ML VIAL ONE ×2 (07:33→07:37)
[2020-09-27] MEDS ORDERED: NEOSTIGMINE 3 MG/3 ML VIAL ONE ×2 (07:33→07:37)
[2020-09-27 07:39] LABS: SMEAR SCAN COMMENT YES
[2020-09-27] MEDS ORDERED: HYDROmorphone 2 MG/ML VIAL (DILAUDID) ONE (07:49)
[2020-09-27] MEDS ORDERED: HYDROmorphone 2 MG/ML VIAL (DILAUDID) IV ONE (08:00)
[2020-09-27] MEDS ORDERED: ONDANSETRON 4 MG/2 ML (SDV) Z0FRAN IVP PRN (08:00)
--- NOTE | 2020-09-27 08:46 | Anesthesia-General Post-Op ---
General Patient Condition Mental Status/LOC: Same as Preop Cardiovascular: Satisfactory Nausea/Vomiting: Absent Respiratory: Satisfactory Pain: Controlled Complications: Absent Post Op Complications Complications None Follow Up Care/Instructions Patient Instructions None needed. Anesthesia/Patient Condition Patient Condition Patient is doing well, no complaints, stable vital signs, no apparent adverse anesthesia problems. No complications reported per nursing. D/C home per [facility] [place] Criteria: Yes ZULMA MARIE CRNA Sep 27, 2020 08:46
[2020-09-27] MEDS ORDERED: TETRACAINESUCKERS MT (09:17)
[2020-09-27] MEDS ORDERED: HYDR15SO8 PO (09:17)
[2020-09-27] MEDS ORDERED: AMOX250S5 PO (09:17)
[2020-09-27] MEDS ORDERED: DEXAINTSOL PO (09:17)
[2020-09-27] MEDS ORDERED: PROMETHAZINE INJ 25 MG/ML (PHENERGAN) AMP ONE (09:38)
[2020-09-27] MEDS ORDERED: PROMETHAZINE INJ 25 MG/ML (PHENERGAN) AMP IVP ONE (09:45)
== END 2020-09-27 10:45 ==
LOC: SDC 06:16
PROVIDERS: ATTEND Otolaryngology Otolaryngology/Facial Plastic Surgery
DX: J35.3 Hypertrophy of tonsils with hypertrophy of adenoids (principal); J03.91 Acute recurrent tonsillitis, unspecified; J98.8 Other specified respiratory disorders; E66.01 Morbid (severe) obesity due to excess calories; Z68.43 Body mass index [BMI] 50.0-59.9, adult; Z79.899 Other long term (current) drug therapy
CPT/HCPCS: 36415; 84703; 85025; 87081; 88304